=== PATIENT | male | born 1970 | race Caucasian/White ===

== ENCOUNTER 2020-12-10 14:47 | Outpatient (REF) | payer BC, SELFPAY ==
[2020-12-10 13:42] LABS: ALT 34 U/L (16-63); AST 15 U/L (15-37); Albumin 3.9 g/dL (3.4-5.0); Alkaline Phosphatase 71 U/L (46-116); Anion Gap 9.6 mmol/L (3-11); BUN 26 mg/dL (7-18); Bilirubin, Total 0.4 mg/dL (0.2-1.0); CO2 27.4 mmol/L (21.0-32.0); Calculated LDL 89 mg/dL (<100); Chloride 101 mmol/L (98-107); Cholesterol 160 mg/dL (<200); Glucose 186 mg/dL (74-106); HDL Cholesterol 40 mg/dL (40-60); Potassium 4.6 mmol/L (3.5-5.1); Sodium 138 mmol/L (136-145); Total Protein 7.4 g/dL (6.4-8.2); Triglyceride 156 mg/dL (<150)
== END 2020-12-10 14:48 | disposition home or self-care (01) ==
LOC: NCHCN 14:47
PROVIDERS: PCP Internal Medicine; Visit Provider Nurse Practitioner Family
DX: Z00.00 Encounter for general adult medical examination without abnormal findings (principal); I10 Essential (primary) hypertension; E11.65 Type 2 diabetes mellitus with hyperglycemia
CPT/HCPCS: 80053; 80061; 83036

== ENCOUNTER 2020-12-25 02:13 | Outpatient (CLI) | payer BC, SELFPAY ==
--- NOTE | 2020-12-25 | DI.US_ITS ---
EXAM: US SCROTUM CLINICAL HISTORY: MASS OF TESTICLE, N50.9. TECHNIQUE: Scrotal ultrasound performed using grayscale, color-flow and spectral Doppler analysis. COMPARISON: No exams were available for comparison FINDINGS: Right testicle: 4.4 x 2.2 x 2.9 cm Echogenicity: Normal. Contour: Smooth. Mass: None seen. Microlithiasis: None. Hydrocele: None. Variocele: None. Hernia: No peristalsing bowel loop identified. Epididymis: Normal. Note is made of a 2 mm echogenic shadowing focus most consistent with a scrotal pleural. Left testicle: 3.9 x 2 x 2.9 cm Echogenicity: Normal. Contour: Smooth. Mass: None seen. Microlithiasis: None. Hydrocele: None. Variocele: None. Hernia: No peristalsing bowel loop identified. Epididymis: 3 spermatoceles are seen. There is one in the epididymal head which measures 4 mm and 2 in the body which measure 5 mm and 3 mm each. DOPPLER: Color: Symmetric and uniform, no hyperemia. Duplex: Bilateral testicular arterial waveforms visualized. IMPRESSION: Left epididymal spermatoceles which appear to correspond to the palpable abnormalities. No evidence of a testicular mass or torsion. DATA REPOSITORY:
== END 2020-12-25 02:33 ==
PROVIDERS: PCP Internal Medicine; Visit Provider Nurse Practitioner Family
DX: N43.42 Spermatocele of epididymis, multiple (principal)
CPT/HCPCS: 76870

== ENCOUNTER 2021-03-13 06:08 | Day surgery (SDC) | payer BC, SELFPAY ==
[2021-03-13 06:24] VITALS: BP 122/86; PULSE 94; RESP 16; TEMP 36.7; O2SAT 96
--- NOTE | 2021-03-13 06:36 | COLE_ITS ---
Date of service: 03/13/21 Time of Service: 07:54 Colonoscopy Report Date of procedure: 03/13/21 Pre-op diagnosis general: Colon Cancer Screening Post-op diagnosis procedure note: other (diverticulosis, colon polyp) Procedure: Colonoscopy with polypectomy Surgeon: Benita White Anesthesia Type: General LMA/ETT (ASA 2/ Dalila Castro CRNA) Estimated blood loss (mL): 3 Pathology: other (Sigmoid polyp) Complications: None Disposition: same day Indications: Pt seen at the request of PCP regarding colon cancer screening. Pt has never had a colon cancer screening before.? Denies problems with constipation, diarrhea.? No pain or difficulty with bowel movements.? Denies rectal bleeding.? There is no family history of any colon cancer.? Pt has not had any weight loss.? Their appetite is good.? No heart, lung, or kidney probl ems. No heartburn or indigestion. No prior colo-rectal surgery.? No prior CARLA.? No problems with anesthesia in the past. Prep: Miralax/Dulcolax Procedure Start Time: :27 Procedure End Time: 07:50 Retraction Time: 15 minutes Findings: One small polyp mild diverticulosis Procedure Description: After informed consent was obtained the patient was taken to the procedure room and placed in a left decubitous position. Monitors were applied and a time out was done. The patients name, date of , procedure, allergies to medications and metal in their body was reviewed. The patient was then sedated. Once sedated and comfortable a rectal exam was done. External exam was normal. Internal exam revealed a normal sphincter tone and no palpable masses. The prostate felt smooth and slightly enlarged. The scope was then introduced and retro-flexed. No internal hemorrhoids, polyps or masses were identified on retro-flexion. The scope was then advanced to the cecum without difficulty. The ileocecal vlave and appendiceal orifice were identified. The prep was good. The scope was then slowly retracted over 15 minutes back into the rectum. Polyps were removed with cold forceps in the sigmoid colon x1. There was mild diverticulosis noted of the sigmoid colon. The scope was removed and the patient was woken up and taken back to Same day surgery in stable condition. The patient tolerated the procedure well and there were no immediate complications. Follow up: The patient should follow up in 10 years (unless the polyp comes back as an adenoma) unless they develop changes in bowel habits or other new gastrointestinal complaints.
--- NOTE | 2021-03-13 06:37 | W.PM.DSUDISC ---
Discharge Plan Disposition Patient Disposition: HOME Condition: Good Discharge Details Reason For Visit: Colonoscopy Attending Provider: Benita White Primary Care Provider: Arash Vergara Home Meds and New Rx's Prescriptions: Continued loratadine [Claritin] 10 mg tablet 10 mg PO DAILY RF: 0 omeprazole magnesium [Prilosec OTC] 20 mg tablet,delayed release (DR/EC) 20 mg PO DAILY RF: 0 sertraline 100 MG tablet 150 mg PO DAILY RF: 0 lisinopril 10 MG tablet 10 mg PO DAILY RF: 0 metformin 500 MG tablet extended release 24 hr 500 mg PO DAILY@1700 Qty: 30 RF: 0 acetaminophen [Tylenol Arthritis Pain] 650 mg Tablet Extended Release 800 mg PO PRN PRNRF: 0 Discharge Instructions Instructions: Diverticulosis (DC), Colorectal Polyps (DC) Additional Instructions: Findings: 1 small polyp mild diverticulosis Follow up: 10 years most likely Please call if you develop: fevers >101.5 Nausea or Vomiting Abdominal pain that is not transient Rectal bleeding that is more then a tbsp A hard abdomen and inability to pass gas DAY SURGERY UNIT POST ENDOSCOPY INSTRUCTIONS Instructions for everyone who is given Anesthesia: For your safety, please do the following for the next 24 Hours: a. Do not drive or operate dangerous equipment b. Do not drink alcohol beverages or use any recreational drugs for the first 24 hours or while taking pain medications. The medications in your body may have a reaction that can be dangerous. c. Do not make any important decisions or sign any important papers 1. Generally there are no restrictions on your activity after a day or so has gone by, but you may feel a bit fatigued for a few days. 2. After you arrive home you may have a light meal and return to a normal diet as you can tolerate it without feeling sick to your stomach. 3. After surgery, you may feel pain or discomfort. This should be only transient, but if it persists please contact your doctor. 4. If there are any questions regarding the findings of your procedure, please feel free to contact your doctor. 6. If you are unable to contact your doctor with a problem, contact the hospital at [phone]. 7. Continue all your regular medications unless directed otherwise. I understand the above instructions and have no questions. Signature of Patient or Responsible Adult Escort Date/Time Name of Responsible Adult Escort Signature of Nurse Date/Time Activity:: Activity as Tolerated Diet:: high fiber diet Discharge Orders Discharge Orders: Discharge Order (Routine); Ordered 03/13/21 Ordered By: Benita White
--- NOTE | 2021-03-13 06:38 | W.PREOPHP ---
Date of service: 03/13/21 Time of Service: 06:39 Assessment and Plan Assessment and plan (1) Encounter for colorectal cancer screening: Status: Acute Assessment and plan: Pt seen at the request of PCP regarding colon cancer screening. Pt has never had a colon cancer screening before.? Denies problems with constipation, diarrhea.? No pain or difficulty with bowel movements.? Denies rectal bleeding.? There is no family history of any colon cancer.? Pt has not had any weight loss.? Their appetite is good.? No heart, lung, or kidney problems. No heartburn or indigestion. No prior colo-rectal surgery.? No prior CARLA.? No problems with anesthesia in the past. Risks, benefits and complications have been reviewed. Complications include but are not limited to bleeding, pain, perforation, missed small lesion/polyp, sore throat, aspiration and adverse reaction to the medications. Questions were entertained and answered to their satisfaction and they wished to proceed. No guarantees were given or implied.\ Proceed with colonoscopy History of Present Illness Narrative: Pt seen at the request of PCP regarding colon cancer screening. Pt has never had a colon cancer screening before.? Denies problems with constipation, diarrhea.? No pain or difficulty with bowel movements.? Denies rectal bleeding.? There is no family history of any colon cancer.? Pt has not had any weight loss.? Their appetite is good.? No heart, lung, or kidney problems. No heartburn or indigestion. No prior colo-rectal surgery.? No prior CARLA.? No problems with anesthesia in the past. Review of Systems Constitutional Constitutional: Denies weight loss Cardiovascular Cardiovascular: Denies chest pain, Denies chest pain at rest, Denies irregular heart rhythm, Denies dyspnea and Denies dyspnea on exertion Respiratory Respiratory: Reports cough, Denies dyspnea and Denies dyspnea on exertion Gastrointestinal Gastrointestinal: Reports as per HPI Genitourinary Genitourinary: Denies dysuria, Reports urinary incontinence and Denies urinary urgency Endocrine Endocrine: Reports system reviewed and no additional complaints, except as documented Hematologic/Lymphatic Hematologic/Lymphatic: Denies easy bruising and Denies lymphadenopathy [facility] Medical History Anxiety disorder Bipolar disorder (09/08/13) Depression Diabetes mellitus, type II Dyspepsia Ear lesion Hypertension Inguinal hernia, left Mass of left testicle Narcissistic personality disorder Obesity OCD (obsessive compulsive disorder) Personality disorder Sciatica Sleep apnea Suicidal behavior (09/08/13) Surgical History Hx of appendectomy Hx of lumpectomy facial Social History Smoking/Tobacco Use Status: Never Smoking risk assessment performed?: Yes Alcohol Intake: current Alcohol Intake frequency: a few times a month Drug use: Never Substance use type: does not use Current gender identity: male Do you feel safe at home: Yes Additional Social history: lives alone Meds Allergies and Home Medications Allergies Allergy/AdvReac Type Severity Reaction Status Date / Time No Known Allergies Allergy Unverified 03/11/21 10:42 Home Medications Medication Instructions Recorded Confirmed Type lisinopril 10 mg PO DAILY 09/08/13 03/13/21 History sertraline 150 mg PO DAILY 09/08/13 03/13/21 History metformin 500 mg PO DAILY@1700 #30 tabcr 09/09/13 03/13/21 Rx loratadine 10 mg tablet 10 mg PO DAILY 01/14/21 03/13/21 History omeprazole magnesium 20 mg 20 mg PO DAILY 01/14/21 03/13/21 History tablet,delayed release acetaminophen [Tylenol Arthritis 800 mg PO PRN PRN 03/13/21 03/13/21 History Pain] Exam Const General: healthy appearing and comfortable HENPA Head: normocephalic and atraumatic Resp Effort & Inspection: normal respiratory effort Auscultation: clear to auscultation bilaterally Cardio Rate: regular rate Rhythm: regular rhythm Heart Sounds: no click, no gallops and no murmurs Results Last Vital Signs Temp 98.1 F 03/13/21 06:24 Pulse 94 H 03/13/21 06:24 Resp 16 03/13/21 06:24 BP 122/86 03/13/21 06:24 Pulse Ox 96 03/13/21 06:24
[2021-03-13] MEDS: Lactated Ringers 1,000 ML 80 ML IV (06:45)
--- NOTE | 2021-03-13 06:55 | W.ANESPRE ---
General Info Date of Service Date Performed: 03/13/21 Height: 5 ft 8 in Weight: 91.7 kg Body Mass Index (BMI): 30.7 Surgical Procedure: Operation Date: 03/13/21 07:35 Proposed Procedures Side Surgeon p Colonoscopy Benita White MD Meds Allergies and Home Medications Allergies Allergy/AdvReac Type Severity Reaction Status Date / Time No Known Allergies Allergy Unverified 03/11/21 10:42 Home Medication Medication Instructions Recorded lisinopril 10 mg PO DAILY 09/08/13 sertraline 150 mg PO DAILY 09/08/13 metformin 500 mg PO DAILY@1700 #30 tabcr 09/09/13 loratadine 10 mg tablet 10 mg PO DAILY 01/14/21 omeprazole magnesium 20 mg 20 mg PO DAILY 01/14/21 tablet,delayed release acetaminophen [Tylenol Arthritis 800 mg PO PRN PRN 03/13/21 Pain] Current Visit Medications: Current Medications Generic Name Dose Route Start Last Admin Trade Name Freq PRN Reason Stop Dose Admin Hyoscyamine Sulfate 0.125 mg 03/13/21 06:37 Hyoscyamine 0.125 Mg Sl/Oral/Chew SL DIRECTED PRN Ringer's Solution 1,000 mls @ 80 mls/hr 03/13/21 06:00 03/13/21 06:45 IV 04/11/21 23:59 80 mls/hr INFUSION KEVIN Administration IV Miscellaneous Supplies 1 each 03/13/21 06:00 Iv Access IV 04/11/21 23:59 DIRECTED KEVIN Ondansetron HCl 4 mg 03/13/21 06:37 Ondansetron 4 Mg/2 Ml Vial IVP Q4H PRN PRN Nausea / Vomiting Sodium Chloride 0 ml 03/13/21 06:00 Normal Saline Flush 10 Ml Syr IV 04/11/21 23:59 PRN PRN Sodium Chloride 0 ml 03/13/21 06:00 Normal Saline 10 Ml Vial IJ 04/11/21 23:59 DIRECTED PRN Sterile Water 0 ml 03/13/21 06:00 Water,Injection,Sterile 10 Ml Vial IJ 04/11/21 23:59 DIRECTED PRN PFSH Active Problems Active Problems: Problem Status Onset Code Encounter for colorectal cancer screening Z12.11, Z12.12 Pain in left hip M25.552 Left sided sciatica M54.32 Piriformis syndrome of right side G57.01 Herniation of right side of L4-L5 intervertebral disc M51.26 Compression neuropathy of right lower extremity G57.91 Chronic low back pain with right-sided sciatica M54.41, G89.29 Preop testing Z01.818 Diabetes mellitus, type II E11.9 Depression F32.9 Hypertension I10 OCD (obsessive compulsive disorder) F42 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 Personality disorder F60.9 Suicidal behavior 09/08/13 R45.851 Medical History Medical History Anxiety disorder Bipolar disorder (09/08/13) Depression Diabetes mellitus, type II Dyspepsia Ear lesion Hypertension Inguinal hernia, left Mass of left testicle Narcissistic personality disorder Obesity OCD (obsessive compulsive disorder) Personality disorder Sciatica Sleep apnea Suicidal behavior (09/08/13) Surgical History Surgical History Hx of appendectomy Hx of lumpectomy facial Tobacco Smoking/Tobacco Use Status: Never Alcohol Alcohol Intake: current Alcohol intake frequency: a few times a month Substance Use Substance use: Never Substance use type: does not use Vital Signs and Lab Results Vital Signs Most Recent Vital Signs in EMR: Most Recent Vital Signs Temp Pulse Resp BP Pulse Ox 36.7 C 94 H 16 122/86 96 03/13/21 06:24 03/13/21 06:24 03/13/21 06:24 03/13/21 06:24 03/13/21 06:24 Point of Care Results Point of Care Results: Finger Stick Blood Glucose 179 03/13/21 06:53 Lab Results Blood Type / Crossmatch: No Data to Display Complete Blood Count: No Data to Display Complete Metabolic Panel: No Data to Display Liver Function Panel: No Data to Display Coagulation Panel: No Data to Display Cardiac Panel: No Data to Display Arterial Blood Gas: No Data to Display Venous Blood Gas: No Data to Display Pancreas Panel: No Data to Display Thyroid Panel: No Data to Display Infectious Disease: No Data to Display Blood Cultures: No Data to Display Toxicology Panel: No Data to Display Anesthesia Assessment and Plan Anesthesia History Personal History: No History of Anesthesia Complications Family History: No Family History of Anesthesia Complications Exercise Tolerance Exercise Tolerance: Metabolic Equivalents>4 Pertinent Negatives Pertinent Negatives: No Symptoms of GERD (Well controlled with omeprazole) Cardiac & Pulmonary Exam Cardiac Exam: Normal S1/S2 Heart Sounds and Heart Murmur Present Pulmonary Exam: Clear Bilateral Breath Sounds Cardiac and Pulmonary Comment:: Sleep apnea, stopped using CPAP Airway Exam Known Difficult Airway: No Mallampati Class: 3 Mouth Opening: Normal (> 3cm) Thyromental Distance: Greater than 3 cm Neck Range of Motion: Full ROM Neck Circumference: Normal Teeth Condition: Normal Dentition Airway Comments: Upper right temporary crown, not loose ASA Classification ASA Score: ASA 2 Emergency Case?: No NPO Status NPO Status: NPO Clears >2 hours, Solids >8 hours Anesthesia Plan Resuscitation Status: Full Code Anesthesia Technique: General Anesthesia Airway Planned: Natural Airway Monitors Used: Standard Monitors
[2021-03-13 07:04] VITALS: BMI 30.7
--- NOTE | 2021-03-13 07:50 | BOWEL_PTH ---
PATIENT: Jorge Luis Tee LOC: [facility] U#:[id number] AGE/SX: 50/M ROOM: RE03/13/[address]: Benita White MD : [id number] BED: DIS: 03/13/2021 SPEC #: [id number] RECD: 03/13/21 11:46 STATUS: MATT REShala #: [id number] TERESA: 03/13/21 07:[address]: Benita White DEPT: Surgical Specimen RECD BY: Ysabel Ramírez ENTERED: 03/13/21 11:46 SP TYPE: Bowel OTHR DR: Arash Vergara Tissues: 1 - BIOPSY BOWEL Procedures: GROSS AND MICRO LEVEL 4 Comments: [id number]
[2021-03-13 07:57] VITALS: BP 111/78; PULSE 91; RESP 18; TEMP 36.2; O2SAT 96
--- NOTE | 2021-03-13 07:57 | W.ANESPOSTOP ---
Postoperative Evaluation Date, Time and Location Date Performed: 03/13/21 Time Performed: 07:58 Patient Location: Day Surgery Unit Vital Signs Most Recent Imported Vital Signs: Most Recent Vital Signs Temp Pulse Resp BP Pulse Ox 36.7 C 94 H 16 122/86 96 03/13/21 06:24 03/13/21 06:24 03/13/21 06:24 03/13/21 06:24 03/13/21 06:24 Most Recent Manually Entered Vital Signs: Adult Blood Pressure: 111/78 Heart Rate: 91 Respirations: 18 Oxygen Saturation (%): 96 Temperature (C): 36.2 C Pain Score (0-10 Scale): 0 Pain Score Most Recent Pain Score: Most Recent Pain Score Pain Level 2 03/13/21 06:24 Assessment Mental Status: Awake (Alert & Oriented to Patient Baseline) Airway and Respiratory Function: Patent airway with normal (patient baseline) respiratory exam Cardiovascular Function: Hemodynamically Stable Hydration Status: Volume Depleted (See Note) Nausea & Vomiting: No Nausea or Vomiting Pain: Pt. Denies Any Pain Peripheral Nerve Block: Patient did not receive a nerve block Teaching Patient Teaching: Discussed Safe Use of Pain Medication Given Likely or Known FLORA
[2021-03-13 08:00] VITALS: BP 111/78; PULSE 91; RESP 18; TEMPC 36.2; O2SAT 96
[2021-03-13 08:25] VITALS: BP 146/99; PULSE 83; RESP 16; TEMP 36.5; O2SAT 97
== END 2021-03-13 08:48 | disposition home or self-care (01) ==
PROVIDERS: PCP Internal Medicine; Visit Provider Surgery
PROC: 0DJD8ZZ Inspection of Lower Intestinal Tract, Via Natural or Artificial Opening Endoscopic (ICD-10-PCS; CPT 45378; principal; 2021-03-13 07:30)
DX: Z12.11 Encounter for screening for malignant neoplasm of colon (principal); K63.5 Polyp of colon; I10 Essential (primary) hypertension; E11.9 Type 2 diabetes mellitus without complications; F60.81 Narcissistic personality disorder; K57.30 Diverticulosis of large intestine without perforation or abscess without bleeding
CPT/HCPCS: 45380; 88305; J2001

== ENCOUNTER 2021-11-04 15:35 | Outpatient (REF) | payer MEDICAID, SELFPAY ==
[2021-11-04 16:45] LABS: ALT 31 U/L (16-63); AST 15 U/L (15-37); Albumin 3.9 g/dL (3.4-5.0); Alkaline Phosphatase 72 U/L (46-116); Anion Gap 9.7 mmol/L (3-11); BUN 21 mg/dL (7-18); Bilirubin, Total 0.4 mg/dL (0.2-1.0); CO2 25.3 mmol/L (21.0-32.0); Calcium 8.8 mg/dL (8.5-10.1); Calculated LDL 96 mg/dL (<100); Chloride 102 mmol/L (98-107); Cholesterol 150 mg/dL (<200); Glucose 176 mg/dL (74-106); HDL Cholesterol 41 mg/dL (40-60); Magnesium 1.5 mg/dL (1.8-2.4); Potassium 4.6 mmol/L (3.5-5.1); Sodium 137 mmol/L (136-145); Total Protein 7.3 g/dL (6.4-8.2); Triglyceride 67 mg/dL (<150); Vitamin B12 406 pg/mL (193-986)
== END 2021-11-04 15:36 | disposition home or self-care (01) ==
LOC: NCHCN 15:35
PROVIDERS: PCP Internal Medicine; Visit Provider Nurse Practitioner Family
DX: I10 Essential (primary) hypertension (principal); E66.9 Obesity, unspecified; K30 Functional dyspepsia; G60.9 Hereditary and idiopathic neuropathy, unspecified; F32.9 Major depressive disorder, single episode, unspecified
CPT/HCPCS: 80053; 80061; 82607; 83735

== ENCOUNTER 2021-11-05 01:04 | Outpatient (CLI) | payer MEDICAID, SELFPAY ==
--- NOTE | 2021-11-05 15:14 | DI.RAD_ITS ---
Exam(s) XR HIP LT COMPLETE AP PELVIS EXAM: XR HIP LT COMPLETE AP PELVIS CLINICAL HISTORY: LT HIP PAIN,M25.552. TECHNIQUE: 2D digital imaging was performed. COMPARISON: No exams were available for comparison FINDINGS: There is no evidence of pelvic nor hip fracture. However, there is asymmetric narrowing and degenera tive change in the left hip joint. Also marginal osteophytes off the left femoral head. No osseous lesions. Bone density normal. IMPRESSION: Significant moderate degenerative changes of the left hip noted. DATA REPOSITORY: RADIATION DOSE DELIVERED:
== END 2021-11-05 01:24 ==
PROVIDERS: PCP Internal Medicine; Visit Provider Nurse Practitioner Family
DX: M16.12 Unilateral primary osteoarthritis, left hip (principal); M25.552 Pain in left hip
CPT/HCPCS: 73502

== ENCOUNTER 2022-03-10 16:07 | Outpatient (CLI) | payer MEDICAID, SELFPAY ==
--- NOTE | 2022-03-10 15:45 | DI.RAD_ITS ---
Exam(s) XR HIP LT COMPLETE AP PELVIS EXAM: XR HIP LT COMPLETE AP PELVIS CLINICAL HISTORY: preop. TECHNIQUE: 2D digital imaging was performed. Two views. COMPARISON: CR XR HIP LT COMPLETE AP PELVIS from 11/05/2021 FINDINGS: BONES: No acute fracture is present. No bony destructive lesion is seen. JOINTS: No dislocation present. Moderate to severe narrowing of the superior left hip joint space. Spurring from the acetabula as well as inferior femoral head. Mild periarticular spurring of the rig ht hip. Ossicle at the right superior acetabulum SOFT TISSUE: Normal. IMPRESSION: Moderate to severe degenerative changes of the left hip. DATA REPOSITORY: RADIATION DOSE DELIVERED:
== END 2022-03-10 16:08 | disposition home or self-care (01) ==
LOC: DIORS 16:08
PROVIDERS: PCP Internal Medicine; Referring Provider Internal Medicine; Visit Provider Physician Assistant Surgical
DX: M25.552 Pain in left hip; M16.12 Unilateral primary osteoarthritis, left hip
CPT/HCPCS: 73502

== ENCOUNTER 2023-01-01 16:13 | Outpatient (REF) | payer MEDICAID, SELFPAY ==
[2023-01-01 21:54] LABS: ALT 29 U/L (16-63); AST 15 U/L (15-37); Albumin 4.3 g/dL (3.4-5.0); Alkaline Phosphatase 90 U/L (46-116); Anion Gap 8.2 mmol/L (3-11); BUN 19 mg/dL (7-18); Bilirubin, Total 0.5 mg/dL (0.2-1.0); CO2 30.8 mmol/L (21.0-32.0); CREATININE 1.2 mg/dL (0.70-1.30); Calcium 10.2 mg/dL (8.5-10.1); Calculated LDL 118 mg/dL (<100); Chloride 101 mmol/L (98-107); Cholesterol 194 mg/dL (<200); Estimated GFR 71.86 (mL/min/1.73m2); Glucose 110 mg/dL (74-106); HDL Cholesterol 49 mg/dL (40-60); Magnesium 1.7 mg/dL (1.8-2.4); Potassium 5.8 mmol/L (3.5-5.1); Sodium 140 mmol/L (136-145); Total Protein 8.1 g/dL (6.4-8.2); Triglyceride 139 mg/dL (<150); Vitamin B12 593 pg/mL (193-986)
== END 2023-01-01 16:14 | disposition home or self-care (01) ==
LOC: NCHCN 16:13
PROVIDERS: PCP Nurse Practitioner Family; Visit Provider Family Medicine
DX: I10 Essential (primary) hypertension (principal); E11.65 Type 2 diabetes mellitus with hyperglycemia; E66.8 Other obesity; Z79.899 Other long term (current) drug therapy
CPT/HCPCS: 80053; 80061; 82607; 83735

== ENCOUNTER 2023-01-20 15:48 | Outpatient (REF) | payer MEDICAID, SELFPAY ==
[2023-01-20 21:48] LABS: Anion Gap 6.7 mmol/L (3-11); BUN 16 mg/dL (7-18); CO2 29.3 mmol/L (21.0-32.0); CREATININE 1.2 mg/dL (0.70-1.30); Calcium 9.4 mg/dL (8.5-10.1); Chloride 105 mmol/L (98-107); Estimated GFR 71.86 (mL/min/1.73m2); Glucose 102 mg/dL (74-106); Potassium 5.1 mmol/L (3.5-5.1); Sodium 141 mmol/L (136-145)
== END 2023-01-20 15:49 | disposition home or self-care (01) ==
LOC: NCHCN 15:48
PROVIDERS: PCP Nurse Practitioner Family; Visit Provider Family Medicine
DX: E87.5 Hyperkalemia (principal)
CPT/HCPCS: 80048

== ENCOUNTER 2023-04-23 03:03 | Outpatient (CLI) | payer MEDICAID, SELFPAY ==
[2023-04-23 09:51] LABS: HCT 43.9 % (40.0-50.0); HGB 15.3 g/dL (13.5-17.5); MCH 29.8 pg (27.0-33.0); MCHC 34.9 % (32.0-36.0); MCV 86 fL (80-95); MPV 9.8 fL (8.0-11.0); Platelet Count 236 10^3/uL (130-400); RBC 5.13 10^6/uL (4.36-5.78); RDW 12.1 % (11.8-14.1); RDW-SD 37.9 fL; WBC 6.27 10^3/uL (4.4-10.8)
[2023-04-23 10:35] LABS: Anion Gap 11.1 mmol/L (3-11); BUN 31 mg/dL (7-18); CO2 23.9 mmol/L (21.0-32.0); Calcium 9.3 mg/dL (8.5-10.1); Chloride 103 mmol/L (98-107); Estimated GFR 89.44 (mL/min/1.73m2); Glucose 137 mg/dL (74-106); Potassium 4.6 mmol/L (3.5-5.1); Sodium 138 mmol/L (136-145)
== END 2023-04-23 03:04 | disposition home or self-care (01) ==
LOC: LBO 03:03
PROVIDERS: PCP Nurse Practitioner Family; Visit Provider Student in an Organized Health Care Education/Training Program
DX: M25.552 Pain in left hip (principal); M16.12 Unilateral primary osteoarthritis, left hip; Z01.818 Encounter for other preprocedural examination; Z01.812 Encounter for preprocedural laboratory examination
CPT/HCPCS: 36415; 80048; 85027

== ENCOUNTER 2023-05-05 05:56 | Day surgery (SDC) | payer MEDICAID, SELFPAY ==
[2023-05-05] VITALS (9 sets, daily range): BP systolic 104–153; BP diastolic 49–90; PULSE 58–87; RESP 15–25; TEMP 36–36.6; O2SAT 95–100; BMI 29.9
--- NOTE | 2023-05-05 06:17 | ANES.PREOP_ITS ---
General Info Date of Service Date Performed: 05/05/23 Height: 5 ft 8 in Weight: 89.358 kg Body Mass Index (BMI): 29.9 Surgical Procedure: Operation Date: 05/05/23 07:50 Proposed Procedure Side Surgeon p Hip Total Hip Anterior, ACTIS Left Linwood Pennington MD Meds Allergies and Home Medications Allergies Allergy/AdvReac Type Severity Reaction Status Date / Time No Known Allergies Allergy Unverified 05/05/23 06:14 Home Medication Medication Instructions Recorded lisinopril 10 mg tablet 10 mg PO DAILY 09/08/13 sertraline 100 mg tablet 150 mg PO DAILY 09/08/13 omeprazole magnesium 20 mg 20 mg PO DAILY 01/14/21 tablet,delayed release (Prilosec OTC) acetaminophen 650 mg 800 mg PO PRN PRN 03/13/21 tablet,extended release (Tylenol Arthritis Pain) metformin 1,000 mg tablet 1,000 mg PO BID 11/13/21 sildenafil 25 mg tablet 25 mg PO DAILY PRN 11/13/21 loratadine 10 mg capsule (Claritin 10 mg PO DAILY 05/15/22 Liqui-Gel) magnesium oxide 400 mg PO DAILY 05/15/22 sitagliptin phosphate 25 mg tablet 25 mg PO DAILY 05/15/22 (Januvia) Current Visit Medications: Current Medications Generic Name Dose Route Start Last Admin Trade Name Stephanie PRN Reason Stop Dose Admin Acetaminophen 1,000 mg 05/05/23 06:00 Acetaminophen 500 Mg Tab PO 06/04/23 05:59 PREOP KEVIN Celecoxib 400 mg 05/05/23 06:00 Celecoxib 200 Mg Cap PO 06/04/23 05:59 PREOP KEVIN Tranexamic Acid 1,000 mg/ 60 mls @ 360 mls/hr 05/05/23 06:00 Sodium Chloride IV 05/05/23 18:00 PREOP KEVIN Ringer's Solution 1,000 mls @ 80 mls/hr 05/05/23 06:00 IV 06/03/23 23:59 INFUSION KEVIN Cefazolin Sodium/Dextrose 2 gm in 50 mls @ 100 mls/hr 05/05/23 06:00 Ancef Duplex IVPB 06/03/23 23:59 PREOP KEVIN IV Miscellaneous Supplies 1 each 05/05/23 06:00 Iv Access IV 06/03/23 23:59 DIRECTED KEVIN Sodium Chloride 0 ml 05/05/23 06:00 Normal Saline Flush 10 Ml Syr IV 06/03/23 23:59 PRN PRN Sodium Chloride 0 ml 05/05/23 06:00 Normal Saline 10 Ml Vial IJ 06/03/23 23:59 DIRECTED PRN Sterile Water 0 ml 05/05/23 06:00 Water,Injection,Sterile 10 Ml Vial IJ 06/03/23 23:59 DIRECTED PRN PFSH Active Problems Active Problems: Problem Status Onset Code Suicidal behavior 09/08/13 R45.851 Personality disorder F60.9 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 OCD (obsessive compulsive disorder) F42 Hypertension I10 Depression F32.9 Diabetes mellitus, type II E11.9 Pain in left hip M25.552 Left sided sciatica M54.32 Piriformis syndrome of right side G57.01 Herniation of right side of L4-L5 intervertebral disc M51.26 Compression neuropathy of right lower extremity 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 denies stated it was his hip Mass of left testicle Obesity Sciatica Sleep apnea Surgical History Surgical History History of colonoscopy (~02/2021) Hx of appendectomy Hx of lumpectomy facial Tobacco Smoking/Tobacco Use Status: Never Alcohol Alcohol Intake: current Alcohol intake frequency: a few times a month Substance Use Substance use: Rarely Substance use type: marijuana Vital Signs and Lab Results Vital Signs Most Recent Vital Signs in EMR: Temp Pulse Resp BP Pulse Ox 36.6 C 65 18 125/77 99 05/05/23 06:00 05/05/23 06:00 05/05/23 06:00 05/05/23 06:00 05/05/23 06:00 Lab Results Blood Type / Crossmatch: No Data to Display Complete Blood Count: White Blood Count 6.27 10^3/uL (4.4-10.8) 04/23/23 09:40 Red Blood Count 5.13 10^6/uL (4.36-5.78) 04/23/23 09:40 Hemoglobin 15.3 g/dL (13.5-17.5) 04/23/23 09:40 Hematocrit 43.9 % (40.0-50.0) 04/23/23 09:40 Platelet Count 236 10^3/uL (130-400) 04/23/23 09:40 Complete Metabolic Panel: Sodium 138 mmol/L (136-145) 04/23/23 09:40 Potassium 4.6 mmol/L (3.5-5.1) 04/23/23 09:40 Chloride 103 mmol/L (98-107) 04/23/23 09:40 Carbon Dioxide 23.9 mmol/L (21.0-32.0) 04/23/23 09:40 BUN 31 mg/dL (7-18) H 04/23/23 09:40 Creatinine 1.0 mg/dL (0.70-1.30) 04/23/23 09:40 Est GFR (CKD-EPI 2020) 89.44 (mL/min/1.73m2) 04/23/23 09:40 Calcium 9.3 mg/dL (8.5-10.1) 04/23/23 09:40 Glucose 137 mg/dL (74-106) H 04/23/23 09:40 Liver Function Panel: No Data to Display Coagulation Panel: No Data to Display Cardiac Panel: No Data to Display Arterial Blood Gas: No Data to Display Venous Blood Gas: No Data to Display Pancreas Panel: No Data to Display Thyroid Panel: No Data to Display Infectious Disease: No Data to Display Blood Cultures: No Data to Display Toxicology Panel: 2 No Data to Display Anesthesia Assessment and Plan Anesthesia History Personal History: No History of Anesthesia Complications Family History: No Family History of Anesthesia Complications Exercise Tolerance Exercise Tolerance: Metabolic Equivalents>4 Cardiac & Pulmonary Exam Cardiac Exam: Normal S1/S2 Heart Sounds Pulmonary Exam: Clear Bilateral Breath Sounds Implantable Cardiac Device Does patient have a Pacemaker or an ICD?: No Airway Exam Known Difficult Airway: No Mallampati Class: 3 Mouth Opening: Normal (> 3cm) Thyromental Distance: Greater than 3 cm Neck Range of Motion: Full ROM Neck Circumference: Normal Teeth Condition: Normal Dentition Airway Comments: Upper right temporary crown, not loose ASA Classification ASA Score: ASA 2 Emergency Case?: No NPO Status NPO Status: NPO Clears >2 hours, Solids >8 hours Anesthesia Plan Resuscitation Status: Full Code Anesthesia Technique: Spinal Anesthesia Airway Planned: Natural Airway Monitors Used: Standard Monitors Preoperative Comments:: 52 yo male for FANTA left. Sig PMHx: HTN (lisinopril), FLORA (has lost weight and does not snore as much), DM (metformin, sitagliptin, last A1c 6.4), GERD (omep 20, well controlled), depression/bipolar/anxiety (sertraline), chronic low back pain (has had injections, passed out with one of them). never smoker, occ EtOH/cannabis. Previous Anes: - colo, prop, natural airway, no issues.
[2023-05-05] MEDS: Acetaminophen 500 MG TAB 1000 MG PO (06:31)
[2023-05-05] MEDS: Celecoxib 200 MG CAP 400 MG PO (06:32)
[2023-05-05] MEDS: Lactated Ringers 1,000 ML 80 ML IV (06:33)
--- NOTE | 2023-05-05 07:00 | DI.RAD_ITS ---
Exam(s) XR HIP LT IN OR EXAM: XR HIP LT IN OR CLINICAL HISTORY: left total hip TECHNIQUE: 2D and realtime digital imaging was performed. CONTRAST MATERIAL: Refer to procedure report. COMPARISON: CR XR HIP LT COMPLETE AP PELVIS from 03/10/2022 FINDINGS: Fluoroscopy was provided for Dr. Pennington during the performance of a left total hip replacement. P lease refer to the procedure report for complete details. Ka,r=4.23 mGy IMPRESSION: RADIATION DOSE DELIVERED:
[2023-05-05] MEDS: ceFAZolin 2 GM/50 ML BAG IVPB (07:44)
--- NOTE | 2023-05-05 09:47 | ROE_ITS ---
Date of service: 05/05/23 Time of Service: 09:15 Operative Note Operative Note DATE OF PROCEDURE: 05/05/23 PRE-OP DIAGNOSIS: Left Hip Osteoarthritis POST-OP DIAGNOSIS: same PROCEDURE: Left Anterior Total Hip Arthroplasty with Intraoperative Navigation SURGEON: Linwood Pennington OPTICAL FABRICATOR: Velma Woods ANESTHESIA TYPE: Spinal Refer to Anesthesia Record ESTIMATED BLOOD LOSS: 500 PATHOLOGY: none sent TOURNIQUET TIME: 0 COMPLICATIONS: None Patient was transported to: PACU Patient's condition: stable Implants: 1. Depuy [place] Acetabular Component, 56mm 2. Depuy Acetabular Liner, [id number] 3. Depuy Actis Standard Collared Femoral Stem, Size 4 4. Depuy Altrx Ceramic Femoral Head, Size 36+5mm Indications: I have seen Jorge Luis in clinic for symptoms of hip arthritis, confirmed with radiographic findings. He has exhausted nonoperative methods and was having significant limitations in daily function and desired better function and less pain. I discussed the technical details of a hip replacement. I explained the risks of the procedure to include, but not limited to, bleeding, infection, pain, stiffness, fracture, damage to nerves and vessels, damage to muscles and tendons, loosening, instability, leg length inequality, need for repeat proced ure, blood clot and cardiopulmonary demise. Despite these risks, Jorge Luis elected to proceed. Findings: There was significant signs of arthritis throughout the hip. Procedure Description: Jorge Luis was greeted in the preoperative holding area where the correct side was identified and marked. The consent was reviewed with the patient and signed. The history and physical was updated. All questions were answered. Jorge Luis was taken back to the operating room. A spinal anesthestic was then administered. The feet were wrapped with cast padding and Coban and then placed into the boot liners and then into the boots. Care was taken to protect the skin and make sure the heels were fully down and the boots were stable. The patient was then positioned onto the HANA table. Both legs were held in a neutral position. SCDs were applied. The patient was then slid down onto a peroneal post. Prophylactic antibiotics in the form of Cefazolin were administered. 1g of Tranxemic Acid was given intravenously within 30 minutes of incision. The left leg was then prepped with Chloraprep and draped in a st andard fashion. A second prep with Chloraprep was performed prior to placement of a shower-curtain type drape with Iodine impregnated skin protection. A timeout to confirm correct identity, side and site, procedure, allergies, anesthesia, and medical concerns was performed. An obliquely oriented incision was made starting lateral to the ASIS and running distal over the Tensor Fascia Lazara (TFL) muscle belly toward the fibular head, approximately 10cm. The skin and soft tissue was dissected sharply, through Cordelia?s fascia, and to the fascia of the TFL. With the fascia and superior border of the IT band identified, the fascia was incised with a new knife just above any perforators from the IT band. The TFL muscle belly was bluntly dissected away from the fascia and moved laterally. The fat between TFL and rectus was identified to ensure the dissection was not within the TFL. Blunt dissection created space between abductors and the capsule and retractor was placed over the lateral femoral neck. The fibers of the rectus femoris tendon were identified and these were freed from the anterior capsule. A second cobra retractor was placed around the medial femoral neck. The TFL was further retracted laterally to show the deep fascia. Careful dissection through this layer identified three main crossing vessels of the lateral femoral circumflex. These were cauterized in multiple locations and then cut without any noticeable bleeding. The TFL was further released bluntly from the deep fascia to expose anterior hip capsule and fat The El orthopaedic retractor was then placed beneath the TFL and against sartorius and medial soft tissues to protect and retract the soft tissues. A T-capsulotomy was then performed starting at the superior lateral acetabulum and moving distally to the intertrochanteric ridge. These capsular flaps were tagged with a No. 1 Ethibond and elevated from within. The capsular flaps were released to the shoulder of the lateral neck and to the lesser trochanter to give excellent visualization of the proximal femur. A neck osteotomy was performed using an oscillating saw based on preoperative templates. This cut started in the shoulder and of the lateral neck and exited medially. The saw was at all times directed medially to avoid injury to the greater trochanter. Gross traction was applied to the leg and the osteotomy opened. The femoral head was removed with a corkscrew, making sure to protect the TFL on its exit. Traction was released after head removal. This was measured on the back table to determine the starting reamer size. Portions of the rectus obscuring visualization were minimally elevated off the superior acetabulum. An anterior retractor was placed over the anterior wall between capsule and labrum and attached to the Gripper retraction system. The femur was rotated to 90 degrees and medial capsule was fully released until the lesser trochanter was palpable and visible; the femur was returned to 30 degrees. A posterior retractor was placed similarly between capsule and labrum. This provided excellent visualization. The contents of the cotyloid fossa were removed with electrocautery and the labrum was removed with a knife. There was a notable floor osteophyte. There was significant chondromalacia of the superior acetabulum. Acetabular reaming began with a 50mm reamer. This first reaming was directed anterior to posterior and medial to get down to the true floor. This was inspected and reamed until the true floor was reached. The anterior retractor was then released and entry and exit was provided by traction on the capsular flaps. I then reamed sequentially up to a 56mm reamer where good fit was obtained. The larger reamers were oriented based on anatomical reference of the anterior and lateral wright to ensure proper abduction and anteversion. Positioning and size was confirmed with the fluoroscopy. A 56mm Depuy [place] acetabular component was selected. The acetabulum was reamed around the periphery with the selected acetabular size to prevent a rim fit. The deep tissues were irrigated. The acetabular component was then impacted in a position of about 40-45 degrees of abduction and 15-20 degrees of anteversion, using the patient?s anatomy as the ultimate landmark. Fluoroscopy was used to confirm this. There was excellent glacing machine tender of the acetabular component and the inserting handle was removed. The acetabular liner, Depuy [id number] polyethylene liner, was inserted and lined up with the tines of the acetabular component. There was no soft tissue i nterposition. The liner was then impacted into position and confirmed to be well-seated. A portion of the david-articular cocktail was then injected around the acetabulum into the capsule and periosteum. This cocktail consisted of 123mg of Ropivacaine, 0.25mg of Epinephrine, 0.04mg of Clonidine, and 15mg of Ketorolac, diluted to 50cc. The leg was rotated to 120 degrees. Any remaining medial capsule was released until the lesser trochanter was easily palpable. A retractor was placed medially. The lateral capsule was further released into the shoulder to allow access to the greater trochanter. A Mcguire retractor was placed over the greater trochanter which allowed the trochanter to flip in front of the capsule for excellent exposure. The leg was brought down into maximal extension and 20 degrees of adduction while ensuring there was no impingement on the acetabulum. Any remnant capsule within the trochanter was released. Piriformis and obturator externis were identified and protected. There was excellent access to the proximal femur. The lateral neck remnant was removed with a rongeur. A blunt canal probe was used to identify the canal and trajectory for later broaching. A box osteotome initiated the broach course. A small curved rasp and a curved curette were used to work laterally. Broaching then began with a starter Actis broach. This was inserted manually around the trochanter and into the canal before mallet blows. The broach was seated to a few millimeters below the cut level based on the neck cut and the preoperative template. Sequential broaching was continued with the JoopLoop pneumatic broaching device until a tight fit was obtained with good rotational control of the femur. A trial standard neck was inserted along with a +5 trial head. The leg was brought out of extension and adduction and then reduced with traction and internal rotation. The leg was stable anteriorly in a position of 30 degrees of extension and 90 degrees of external rotation. Fluoroscopy was used to ensure there was no fracture and the stem was seated well. Leg lengths were checked with an AP pelvis and pelvic reference points. [employer] navigation system was used to confirm appropriate positioning and leg length and offset. Once content with the desired offset and leg lengths, the leg was brought back into extension, external rotation and adduction. The periosteum and surrounding tissue was injected with remaining portion of the david-articular cocktail. The proximal femur was irrigated as well as the deep tissues. The Glydeuy Actis standard collared stem, size 4, was then manually inserted into the proximal femur making sure to control rotation. It was then malleted into position with light blows, giving breaks to allow bone expansion and decrease risk of fracture. The selected Depuy Altrx Ceramic Head, size 36+5mm, was then placed onto the clean and dry trunnion and secured with impaction onto the tapered fit. The leg was brought back out of extension and adduction and reduced with traction and internal rotation. Stability was confirmed with no shuck at 90 degrees of external rotation and 30 degrees of extension. No impingement through range of motion arc. Final x-ray images were obtained with fluoroscopy to confirm adequate positioning and no intraoperative fracture. The deep tissues were thoroughly irrigated with Surgiphor, betadine solution. This was allowed to sit in the wound for 3 minutes before being thoroughly irrigated out with normal saline. The capsule was then reapproximated with the previously placed Ethibond sutures. The TFL fascia was finally closed with a No. 2 Stratafix, barbed suture. Deep tissues were then reapproximated with 0 Vicryl and a running 2-0 Vicryl. The skin was closed with a running 4-0 Monocryl in a subcuticular fashion. This was reinforced with skin glue. A Mepilex silver dressing was applied. At the end of the case, all counts were correct. Jorge Luis was transferred to the hospital bed without difficulty and suffering no apparent complication. Jorge Luis has a good prognosis. Physical therapy will start today and without restrictions, weight-bearing as tolerated. Aspirin 81mg BID will be used for DVT prophylaxis.
--- NOTE | 2023-05-05 10:05 | W.ANESPOSTOP ---
Postoperative Evaluation Date, Time and Location Date Performed: 05/05/23 Time Performed: 10:05 Patient Location: PACU Vital Signs Most Recent Imported Vital Signs: Most Recent Vital Signs Temp Pulse Resp BP Pulse Ox 36.3 C L 61 18 135/80 100 05/05/23 09:59 05/05/23 09:59 05/05/23 09:59 05/05/23 09:59 05/05/23 09:59 Pain Score Most Recent Pain Score: Most Recent Pain Score Pain Level 0 05/05/23 09:59 Assessment Mental Status: Awake (Alert & Oriented to Patient Baseline) Airway and Respiratory Function: Patent airway with normal (patient baseline) respiratory exam Cardiovascular Function: Hemodynamically Stable Hydration Status: Adequately Hydrated Nausea & Vomiting: No Nausea or Vomiting Pain: Pain is tolerable per patient Peripheral Nerve Block: Other (spinal still in some effect. )
[2023-05-05] MEDS: oxyCODONE 5 MG TAB PO (10:50)
[2023-05-05] MEDS: Methocarbamol 500 MG TAB PO (11:55)
--- NOTE | 2023-05-05 13:25 | DSE_ITS ---
Date of service: 05/05/23 Time of Service: 13:24 DS: Diagnosis Discharge Diagnosis (1) Primary osteoarthritis of left hip: Status: Acute Discharge Plan Disposition Patient Disposition: Home Condition: Good Discharge Details Reason For Visit: Left hip DJD Attending Provider: Linwood Pennington Primary Care Provider: Shira Bower Home Meds and New Rx's Prescriptions: New acetaminophen 500 mg tablet 1,000 mg PO Q8H PRN Qty: 90 0RF Rx Instructions: Take two tablets up to every 8 hours as needed for pain aspirin 81 mg tablet,delayed release (DR/EC) 81 mg PO BID 30 Days Qty: 60 0RF celecoxib [Celebrex] 200 mg capsule 200 mg PO BID PRNQty: 60 0RF Rx Instructions: Take one tablet twice daily for pain and inflammation docusate sodium [Colace] 100 mg capsule 100 mg PO BID Qty: 30 0RF oxycodone 5 mg tablet 5 mg PO Q6H PRNQty: 12 0RF Rx Instructions: Take one tablet up to every 6 hours as needed for severe postoperative pain Continued omeprazole magnesium [Prilosec OTC] 20 mg tablet,delayed release (DR/EC) 20 mg PO DAILY sildenafil 25 mg tablet 25 mg PO DAILY PRN Rx Instructions: administer 30 minutes to 4 hours before activity metformin 1,000 mg tablet 1,000 mg PO BID Januvia 25 mg tablet 25 mg PO DAILY magnesium oxide 400 mg magnesium tablet 400 mg PO DAILY Claritin Liqui-Gel 10 mg capsule 10 mg PO DAILY sertraline 100 MG tablet 150 mg PO DAILY Patient Comments: pt states he stopped 2 weeks ago lisinopril 10 MG tablet 10 mg PO DAILY Patient Comments: pt states he stopped taking it 2 weeks ago Discontinued acetaminophen [Tylenol Arthritis Pain] 650 mg Tablet Extended Release 800 mg PO PRN PRN Discharge Instructions Additional Instructions: Total Hip Discharge Instructions Activity: The most important activity is to walk. You should try to take short walks a few times a day. You have no restrictions on movement or positioning, but do not try to force what you do. You will find some stiffness and weakness with hip flexion (lifting your knee). Do not try to strengthen this too early, continue to practice walking and stairs and this will come. - Outpatient physical therapy can be helpful to help return you to a normal gait and improve your flexibility and strength. This can start around 2 weeks. For some patients, it?s not necessary. Usually this is determined at the time of discharge or at the first post-operative visit. - You should wear the PASTORA hose on both legs for 2 weeks. Dressing: Keep the surgical dressing in place for at least one week. After the first week it may be removed and replace with light gauze and tape or nothing. It may get wet after 3 days but avoid soaking the dressing. If it gets wet, just lightly pat dry. It is important to always keep some gauze between skin folds, especially when you are sitting. Spend some time with the wound exposed when you are lying flat as the incision does wrinkle onto itself. Medications: - You should take Tylenol and an anti-inflammatory Celebrex as your primary pain control medications. If the Celebrex is too expensive or not covered, please call the office for another alternative (Advil/Ibuprofen or Naproxen/Aleve). - You have been prescribed a stronger pain medication Oxycodone for breakthrough pain, take as needed as prescribed. - You take a stomach acid reduction agent Omeprazole at baseline - continue with this medication to help reduce stomach acid and reflux. - You will be taking Aspirin 81mg twice a day for DVT prevention unless instructed otherwise. - If you have constipation you should take Colace (which has been prescribed) or Miralax (which is available [id number]). It takes most people 3-4 days to have a bowel movement. Follow-up: 2 weeks If you have any acute concerns or questions, please do not hesitate to contact the office at [phone]. You may contact Dr. Pennington with any questions after hours through the hospital at [phone] or on his cell phone at [phone]. Stand Alone Forms: Anesthesia Discharge Inst., Mika Nguyễn ([facility]) Referrals: Linwood Pennington MD [ [facility] STAFF PHYSICIAN] - Equipment/Supplies: Walker Activity:: Elevate Remove Dressings/Wound Care:: Do Not Remove Shower/Bathe:: Cover Diet:: As Tolerated Discharge Orders Discharge Orders: Discharge Order (Routine); Ordered 05/05/23 Ordered By: Linwood Pennington DS: Summary Time Spent with Patient providing and/or coordinating discharge services: Less than 30 minutes Status at Discharge Functional status at discharge: uses cane/walker Overall status at discharge: patient is progressing back to baseline Mental Status: mental status grossly normal Speech and Movement: speech and movement normal Mood: congruent mood Affect: normal affect Exam Psych Mental Status: mental status grossly normal Speech and Movement: speech and movement normal Mood: congruent mood Affect: normal affect DS: Data Vitals/I&O Vitals and I&O: Vital Signs Temperature 97.9 F 05/05/23 06:00 Pulse 65 05/05/23 06:00 Pulse Rhythm Regular 05/05/23 06:00 Respiratory Rate 18 05/05/23 06:00 Respiratory Depth Normal 05/05/23 06:00 Blood Pressure 125/77 05/05/23 06:00 Pulse Oximetry 99 05/05/23 06:00 Oxygen Delivery Method Room Air 05/05/23 06:00 Oxygen Flow Rate 0 05/05/23 06:00 Intake & Output 05/04/23 05/04/23 05/05/23 11:59 23:59 11:59 Weight 197 lb 0.011 oz 197 lb 0.011 oz 197 lb 0.011 oz PFSH All Active Problems Suicidal behavior (Acute 09/08/13) Personality disorder (Chronic) Narcissistic personality disorder (Chronic) OCD (obsessive compulsive disorder) (Chronic) Hypertension (Chronic) Depression (Acute) Diabetes mellitus, type II (Chronic) Pain in left hip (Acute) Left sided sciatica (Acute) new onset Piriformis syndrome of right side (Acute) Herniation of right side of L4-L5 intervertebral disc (Acute) Compression neuropathy of right lower extremity (Acute) 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 denies stated it was his hip Mass of left testicle Obesity Sciatica Sleep apnea Surgical History History of colonoscopy (~02/2021) Hx of appendectomy Hx of lumpectomy facial Social History (Updated 04/23/23 @ 11:28 by REKHA George) Smoking/Tobacco Use Status: Never Smoking risk assessment performed?: Yes Alcohol Intake: current Alcohol Intake frequency: a few times a month Drug use: Rarely Substance use type: marijuana Housing: apartment Current gender identity: male Do you feel safe at home: Yes Do you feel safe in your relationship?: Yes Additional Social history: lives alone Time Spent with Patient Time Spent with Patient: <45 minutes Time was spent: preparing to see the patient(eg.review tests), counseling the patient and care coordination
== END 2023-05-05 13:38 | disposition home or self-care (01) ==
PROVIDERS: PCP Nurse Practitioner Family; Visit Provider Student in an Organized Health Care Education/Training Program
PROC: (CPT 27130; principal; 2023-05-05 07:30)
DX: M16.12 Unilateral primary osteoarthritis, left hip (principal); E11.9 Type 2 diabetes mellitus without complications; E66.9 Obesity, unspecified; I10 Essential (primary) hypertension
CPT/HCPCS: 27130; 20985; 73501; J0690; J1100; J2001; J2250; J2371; J2405; J2704

== ENCOUNTER 2023-05-25 10:29 | Outpatient (CLI) | payer MEDICAID, SELFPAY ==
--- NOTE | 2023-05-25 10:15 | DI.RAD_ITS ---
Exam(s) XR HIP LT COMPLETE AP PELVIS EXAM: XR HIP LT COMPLETE AP PELVIS INDICATION: 1ST POST OP S/P L FANTA. COMPARISON: CR XR HIP LT COMPLETE AP PELVIS from 03/10/2022 XA XR HIP LT IN OR from 05/05/2023 TECHNIQUE: 2D digital imaging was performed. Two views. FINDINGS: There has been no change in the alignment of the left hip prosthesis. There are no surrounding abnor mal bony lucencies. [id number] degenerative changes are right hip. DATA REPOSITORY: RADIATION DOSE DELIVERED:
== END 2023-05-25 10:30 | disposition home or self-care (01) ==
LOC: DIORS 10:30
PROVIDERS: PCP Nurse Practitioner Family; Visit Provider Student in an Organized Health Care Education/Training Program
DX: Z96.642 Presence of left artificial hip joint (principal); Z47.1 Aftercare following joint replacement surgery
CPT/HCPCS: 73502

== ENCOUNTER 2023-08-12 16:05 | Outpatient (REF) | payer MEDICAID, SELFPAY ==
[2023-08-12 21:59] LABS: Anion Gap 10.3 mmol/L (3-11); BUN 22 mg/dL (7-18); CO2 24.7 mmol/L (21.0-32.0); Chloride 103 mmol/L (98-107); Estimated GFR 89.44 (mL/min/1.73m2); Glucose 106 mg/dL (74-106); Magnesium 1.9 mg/dL (1.8-2.4); Potassium 4.6 mmol/L (3.5-5.1); Sodium 138 mmol/L (136-145)
== END 2023-08-12 16:06 | disposition home or self-care (01) ==
LOC: NCHCN 16:05
PROVIDERS: PCP Nurse Practitioner Family; Visit Provider Family Medicine
DX: E87.5 Hyperkalemia (principal); E83.42 Hypomagnesemia
CPT/HCPCS: 80048; 83735

== ENCOUNTER 2023-12-17 14:37 | Outpatient (REF) | payer MEDICAID, SELFPAY ==
[2023-12-17 21:34] LABS: Hemoglobin A1C 6.7 % (<5.7)
[2023-12-17 21:37] LABS: ALT 68 U/L (16-63); AST 64 U/L (15-37); Albumin 4.1 g/dL (3.4-5.0); Alkaline Phosphatase 76 U/L (46-116); Anion Gap 8.2 mmol/L (3-11); BUN 14 mg/dL (7-18); Bilirubin, Total 0.5 mg/dL (0.2-1.0); CO2 29.8 mmol/L (21.0-32.0); Calcium 9.4 mg/dL (8.5-10.1); Calculated LDL 58 mg/dL (<100); Chloride 102 mmol/L (98-107); Cholesterol 120 mg/dL (<200); Estimated GFR 88.88 (mL/min/1.73m2); Glucose 132 mg/dL (74-106); HDL Cholesterol 51 mg/dL (40-60); Magnesium 1.6 mg/dL (1.8-2.4); Potassium 4.8 mmol/L (3.5-5.1); Sodium 140 mmol/L (136-145); Total Protein 7.5 g/dL (6.4-8.2); Triglyceride 57 mg/dL (<150)
== END 2023-12-17 14:38 | disposition home or self-care (01) ==
LOC: NCHCN 14:37
PROVIDERS: PCP Nurse Practitioner Family; Visit Provider Family Medicine
DX: I10 Essential (primary) hypertension (principal)
CPT/HCPCS: 80053; 80061; 83036; 83735

== ENCOUNTER → 2023-12-29 03:32 | Outpatient (CLI) | payer MEDICAID, SELFPAY ==
--- NOTE | 2023-12-29 | DI.MRI_ITS ---
Exam(s) MR LUMBAR SPINE WO EXAM: MR LUMBAR SPINE WO CLINICAL HISTORY: RADICULOPATHY LUMBAR REGION M54.16. TECHNIQUE: Multiplanar multisequence MRI of the Lumbar spine was performed. COMPARISON: There are no plain films of the lumbar spine available at time of this MRI interpretatio n. FINDINGS: Vertebrae are presumed. Conus medullaris is at normal level. There is no evidence of conus mass nor subjacent clumping of in trathecal nerve roots to suggest arachnoiditis. The distal thecal sac appears unremarkable.There is no evidence of Tarlov intrasacral cysts nor other significant findings within the sacral canal Bones:There are no fractures nor ominous osseous lesions in the lumbar vertebral bodies and visualize d sacrum. With respect to the individual levels... T12-L1: Unremarkable L1-2: Normal disc height and signal. However, there is a right paracentral small disc protrusion whic h extends posteriorly 3 mm, is approximately 1.2 cm wide, and which slightly indents the anterior the sujey sac but not the conus medullaris. Central canal dimensions are lower normal. Disc herniation do es not extend into the exiting neural foramen and there is no foraminal stenosis on either side at th is level. Facets unremarkable. L2-3: Normal disc height. No disc herniation nor central canal stenosis.No foraminal stenosis.No face t arthropathy. L3-4: Normal disc height. There has a small focus of hyperintensity in the annulus within the exitin g left neural foramen with mild annular bulging at this level into the floor of the exiting left neur al foramen but there is still preserved area of fat signal around the exiting left nerve root at this level.No significant findings in the opposite-right neural foramen. Central canal dimensions are no rmal.No facet arthropathy. L4-5: There is mild narrowing of the right-side of the disc space. No prominent disc space narrowing . Mild annular bulging but without a distinct disc herniation. Central canal dimensions are normal. There is mild right-sided foraminal stenosis due to mild vertical height loss of the disc on the ri ght side. No foraminal stenosis on the left side. There is increased signal within the right facet joint at this level consistent with some degenerative change. There is no degenerative synovial cyst . L5-S1: This level exhibits chronic disc space narrowing and mild Modic type 1 sub endplate marrow karo ma changes, more so on the right than the left side. There is broad annular bulging centrally with a small superimposed right paracentral disc protrusion extending posteriorly 3 mm and approximately 4 mm wide. This contacts the anterior thecal sac but does not significantly impress the thecal sac and adjacent nerve roots. There is no central canal stenosis. There is moderate right-sided foraminal stenosis due to significant disc height loss. There is also mild-moderate left-sided foraminal steno sis, also related to the disc height loss. There are only mild degenerative changes in the facet boo nts at this level. No ligamentum flavum hypertrophy. Soft tissues: paraspinal soft tissues appear unremarkable. IMPRESSION: 1. Multilevel findings as described individually above. 2. There is advanced chronic disc space narrowing at L5-S1 level as well as Modic type 1 sub endplate marrow edema changes at this level. Small right paracentral disc protrusion at this level is superi mposed upon broad annular bulging. There is also mild-moderate bilateral vertical foraminal stenosis at this level which is related to the disc height loss at this level. There are only mild degenerat skinny changes in the facet joints. 3. Other findings as above. DATA REPOSITORY:
== END ==
PROVIDERS: PCP Nurse Practitioner Family; Visit Provider Family Medicine
DX: M51.37 Other intervertebral disc degeneration, lumbosacral region (principal)
CPT/HCPCS: 72148